=== PATIENT | male | born 1995 | race Caucasian/White ===

== ENCOUNTER 2017-05-20 13:05 | Emergency (ER) | payer OTHER ==
[~2017-05-20] VITALS: Ht 175.3 cm; Wt 85.0 kg
[2017-05-20 13:08] VITALS: TEMP 36.6; Ht 175.3 cm; Wt 85.0 kg
[2017-05-20] MEDS ORDERED: IBUPROFEN 600 MG TAB PO STA (13:14)
--- NOTE | 2017-05-20 13:43 | DIAGNOSTIC IMAGING REPORT ---
RIGHT HAND 3 VIEWS CLINICAL HISTORY: Right hand injury. FINDINGS: 3 portable views of the right hand are obtained. No prior studies are available for comparison at the time of dictation. The skeletal structures are well mineralized. No fracture is identified. The joint spaces of the hand are well-maintained. Dorsal soft tissue edema is noted. IMPRESSION: Dorsal soft tissue swelling with no radiographic evidence of right hand fracture. Electronically signed by: Angel Means M.D. 05/20/2017 1:41 PM Dictated Date/Time: 05/20/2017 1:40 PM
--- NOTE | 2017-05-20 13:48 | EMERGENCY ROOM VISIT NOTE ---
ED Visit Note First contact with patient: 13:11 CHIEF COMPLAINT: Right Hand injury HISTORY OF PRESENT ILLNESS: This 22-year-old male presents the ER with chief complaint of right hand injury. The patient states that he was drinking last night and thinks he hit his right hand off of a wall. He applied ice last night. The patient denies any numbness and tingling in his fingers. He admits to generalized swelling of the hand. He denies a prior fracture to the hand. He is right-hand dominant. REVIEW OF SYSTEMS: 6 system review was performed and was negative unless stated otherwise in history of present illness. PMH: The patient is healthy; there is no significant medical or surgical history. SOCIAL HISTORY: Patient denies tobacco use but admits to occasional alcohol use. The patient is a [employer] student. PHYSICAL EXAM: Vital Signs: Were reviewed Reviewed Nurse's notes. GEN.: 22-year -old male appears in no acute distress. MENTAL Status: Alert and oriented 3. RIGHT HAND: The dorsum of the hand is diffusely swollen and tender. The skin is intact. Flexion and extension of the fingers is full and strong. EMERGENCY DEPARTMENT COURSE: The patient was evaluated. The patient was given Motrin 6 mg by mouth for pain. X-ray of the right hand was ordered interpreted by the radiologist and myself. DIAGNOSTICS:RIGHT HAND 3 VIEWS CLINICAL HISTORY: Right hand injury. FINDINGS: 3 portable views of the right hand are obtained. No prior studies are available for comparison at the time of dictation. The skeletal structures are well mineralized. No fracture is identified. The joint spaces of the hand are well-maintained. Dorsal soft tissue edema is noted. IMPRESSION: Dorsal soft tissue swelling with no radiographic evidence of right hand fracture. Electronically signed by: Angel Means M.D. 05/20/2017 1:41 PM The patient was informed of the findings. The patient was discharged home in stable condition. DIAGNOSIS: Right Hand contusion DISCHARGE INSTRUCTIONS & TREATMENT: Rest the hand and keep it inactive for 2 to 3 days until the pain and swelling subside. Ibuprofen, 600 mg every 6 hours for pain. Keep the hand elevated when possible. If symptoms persist, follow- up with [facility] for reevaluation. Vital Signs Date Time Temp Pulse Resp B/P (MAP) Pulse Ox O2 Delivery O2 Flow Rate FiO2 05/20/17 13:08 36.6 85 16 122/75 96 Medications Administered Medications (Trade) Dose Ordered Sig/Carolyn Route Start Time Stop Time Status Last Admin Dose Admin Ibuprofen (Motrin Tab) 600 mg NOW STAT PO 05/20/17 13:14 05/20/17 13:16 DC 05/20/17 13:43 600 MG Departure Information Referrals No Doctor, Assigned (PCP) Patient Instructions [facility]
[2017-05-20 14:00] VITALS: BP 131/77; PULSE 67; O2SAT 98
== END 2017-05-20 14:03 | disposition home or self-care (01) ==
LOC: C.EDB 13:07 → C.EDD 14:03
DX: S60.221A Contusion of right hand, initial encounter (principal); W22.09XA Striking against other stationary object, initial encounter

== ENCOUNTER 2018-06-28 21:15 | Inpatient (IN) ==
[2018-06-28] MEDS ORDERED: SODIUM CHLORIDE 0.9% 1000ML 1,000 ML IV ONE (22:22)
--- NOTE | 2018-06-28 22:46 | XRay Report ---
SINGLE VIEW CHEST CLINICAL HISTORY: Sepsis. FINDINGS: An AP, portable, upright chest radiograph is obtained. No prior studies are available for c omparison at the time of dictation. The cardiomediastinal silhouette is unremarkable. The lungs and pleural spaces are clear. No pneumothorax is seen. The bony thorax is grossly intact. IMPRESSION: No active disease in the chest. Electronically signed by: Angel Means M.D. 06/28/2018 10:45 PM
[2018-06-28 23:02] LABS: Basophils # (auto) 0.02 K/uL (0-0.2); Basophils % (auto) 0.2 %; Eosinophils # (auto) 0.17 K/uL (0-0.5); Eosinophils % (auto) 1.6 %; Hematocrit (blood only) 35.4 % (42-52); Hemoglobin 12.1 g/dL (14.0-18.0); Immature Granulocytes # (auto) 0.03 K/uL (0.00-0.02); Immature Granulocytes % (auto) 0.3 %; Lymphocytes # (auto) 2.15 K/uL (1.2-3.4); Lymphocytes % (auto) 20.8 %; Mean Corpuscular Hgb Conc 34.2 g/dL (32-36); Mean Corpuscular Volume 89.2 fL (80-100); Mean Platelet Volume 9.3 fL (7.4-10.4); Monocytes # (auto) 0.68 K/uL (0.11-0.59); Monocytes % (auto) 6.6 %; Neutrophils # (auto) 7.28 K/uL (1.4-6.5); Neutrophils % (auto) 70.5 %; Platelet Count 190 K/uL (130-400); RDW Coefficient of Variation 13.6 % (11.5-14.5); RDW Standard Deviation 44.8 fL (36.4-46.3); Red Blood Count 3.97 M/uL (4.7-6.1); White Blood Count 10.33 K/uL (4.8-10.8)
[2018-06-28 23:14] LABS: INR 1.2 (0.9-1.1); Partial Thromboplastin Ratio 1.1; Partial Thromboplastin Time 30.2 Seconds (21.0-31.0); Prothrombin Time 12.4 Seconds (9.0-12.0)
[2018-06-28 23:20] LABS: Alanine Aminotransferase 55 U/L (12-78); Albumin Level 3.6 gm/dl (3.4-5.0); Aspartate Aminotransferase 103 U/L (15-37); BUN Creatinine Ratio 10.7 (10-20); Blood Urea Nitrogen 11 mg/dl (7-18); Calcium 8.3 mg/dl (8.5-10.1); Carbon Dioxide 30 mmol/L (21-32); Chloride 102 mmol/L (98-107); Creatinine Clr Calc Pharmacy 130.3 ml/min; Est GFR (African American) 118.4; Est GFR (Non-African American) 102.2; Glucose 79 mg/dl (70-99); Potassium 3.5 mmol/L (3.5-5.1); Sodium 137 mmol/L (136-145)
[2018-06-28 23:23] LABS: Albumin Globulin Ratio 1.2 (0.9-2); Alkaline Phosphatase 63 U/L (45-117); Bilirubin,Total 1.7 mg/dl (0.2-1); Globulin 3.1 gm/dl (2.5-4.0); Total Protein 6.7 gm/dl (6.4-8.2)
[2018-06-28 23:34] LABS: Acetaminophen < 2 ug/ml (10-30); Salicylate < 1.7 mg/dl (2.8-20)
[2018-06-29] MEDS ORDERED: KETOROLAC 30 MG/ML VIAL IV ONE (00:05)
--- NOTE | 2018-06-29 00:16 | Emergency Department Note ---
Entered by Zain Vera acting as a scribe for Robin Li MD History of Present Illness General Chief complaint: Neck Injury/Pain Stated complaint: HARD TIME BREATHING Time Seen by Provider: 06/28/18 22:13 Source: patient History of Present Illness Onset (ago): day(s) 2 Location: neck Pain Consistency: + constant Maximum Pain Intensity: 7 Associated symptoms: + other (Positive for a sore throat, headache, brown productive cough, joint aches, vision changes, and SOB. Negative for ear aches, vomiting, diarrhea, and abdominal pain.) The patient is a 23 year old male who presents to the emergency department with complaints of constant neck pain beginning two days ago. The patient states that his neck pain is along both sides of his neck. He notes that he has been rubbing his neck so much that it has become raw. He also complains of a sore throat, headache, a brown productive cough, joint aches, vision changes, and SOB. He denies any ear aches, vomiting, diarrhea, and abdominal pain. He reports that he drinks alcohol but does not use any drugs. The patient states that he has been using ibuprofen with no relief of his symptoms. He notes that he did not get a flu shot this year. Home Medications Home Medications Medication Instructions Recorded Confirmed Type No Known Home Medications 06/28/18 06/28/18 History Allergies Allergy/AdvReac Type Severity Reaction Status Date / Time No Known Allergies Allergy Unverified 06/28/18 23:06 Past Med/Surg History Medical History No chronic problems Family History Other No significant family history Social History Feels Safe at Home: Yes Smoking Status: Never smoker Hx Alcohol Use: Yes Hx Substance Use: No Review of Systems See HPI for pertinent positives & negatives. and A total of 10 systems reviewed and were otherwise negative Physical Exam Vital Signs Vital Signs - 24 hr 06/28/18 21:16 06/28/18 21:19 06/28/18 22:22 Temperature 37.2 C Temperature Source Oral Sepsis Recent Fever Within 48 Hours No Sepsis New/Unexplained Change in Mental Status No Sepsis Action Taken by Nursing No Action Required Pulse Rate 108 H 105 H Pulse Rate [Right Finger] 101 H Pulse Rate from SpO2 Sensor Pulse Rhythm [Right Finger] Pulse Strength [Right Finger] Respiratory Rate 22 20 Respiratory Effort / Characteristics Non-Labored Spontaneous Respiratory Depth Normal Respiratory Pattern Regular Blood Pressure 134/94 Blood Pressure [Right Arm] 119/71 Blood Pressure Mean 107 Blood Pressure Mean [Right Arm] 87 Blood Pressure Position [Right Arm] Sitting Pulse Oximetry 95 94 98 Oxygen Delivery Method Room Air Room Air Oxygen Flow Rate 06/28/18 22:37 06/28/18 23:00 06/28/18 23:15 Temperature Temperature Source Sepsis Recent Fever Within 48 Hours Sepsis New/Unexplained Change in Mental Status Sepsis Action Taken by Nursing Pulse Rate 101 H 92 H Pulse Rate [Right Finger] 100 H Pulse Rate from SpO2 Sensor 100 H 92 H Pulse Rhythm [Right Finger] Pulse Strength [Right Finger] Respiratory Rate 22 18 15 Respiratory Effort / Characteristics Non-Labored Spontaneous Respiratory Depth Normal Respiratory Pattern Regular Blood Pressure Blood Pressure [Right Arm] 119/69 Blood Pressure Mean Blood Pressure Mean [Right Arm] 85 Blood Pressure Position [Right Arm] Lying Pulse Oximetry 95 78 L 96 Oxygen Delivery Method Room Air Oxygen Flow Rate 3 06/28/18 23:30 06/28/18 23:45 06/29/18 00:00 Temperature Temperature Source Sepsis Recent Fever Within 48 Hours Sepsis New/Unexplained Change in Mental Status Sepsis Action Taken by Nursing Pulse Rate 111 H 100 H Pulse Rate [Right Finger] Pulse Rate from SpO2 Sensor 105 H 117 H 100 H Pulse Rhythm [Right Finger] Pulse Strength [Right Finger] Respiratory Rate 16 18 Respiratory Effort / Characteristics Respiratory Depth Respiratory Pattern Blood Pressure 119/68 Blood Pressure [Right Arm] Blood Pressure Mean 85 Blood Pressure Mean [Right Arm] Blood Pressure Position [Right Arm] Pulse Oximetry 96 96 96 Oxygen Delivery Method Oxygen Flow Rate 3 3 3 06/29/18 00:54 06/29/18 01:39 Temperature Temperature Source Sepsis Recent Fever Within 48 Hours Sepsis New/Unexplained Change in Mental Status Sepsis Action Taken by Nursing Pulse Rate Pulse Rate [Right Finger] 100 H 100 H Pulse Rate from SpO2 Sensor Pulse Rhythm [Right Finger] Regular Pulse Strength [Right Finger] Normal Respiratory Rate 17 18 Respiratory Effort / Characteristics Non-Labored Spontaneous Non-Labored Spontaneous Respiratory Depth Shallow Normal Respiratory Pattern Regular Regular Blood Pressure Blood Pressure [Right Arm] 120/100 102/75 Blood Pressure Mean Blood Pressure Mean [Right Arm] 106 84 Blood Pressure Position [Right Arm] Sitting Lying Pulse Oximetry 85 L 98 Oxygen Delivery Method Room Air Room Air Oxygen Flow Rate General: Non-ill appearing 23 year old male in no acute distress. Nontoxic, normal level of consciousness, answering questions appropriately. GCS: 15. HEENT: Normal cephalic atraumatic. Pupils are equal round and reactive to light. Extraocular movements are intact. Oropharynx is pink with moist mucous membranes. No swelling of the mouth lips or tongue. Neck: Supple with a midline trachea. No meningeal signs or stiffness, no JVD or bruits. No Stridor. Scabs to the right lateral neck that have been scratched. Negative Kernig sign, negative Brudzinski sign. Chest: Clear to auscultation bilaterally. No wheezes or rhonchi. No increased work of breathing. Heart: regular rate and rhythm. Abdomen: Soft nontender, nondistended without rebound guarding or rigidity. Extremities: No cyanosis clubbing or edema. No calf tenderness or asymmetry Spine/Back. Non tender to palpation. No CVA tenderness Skin: Good turgor. Rash on chest that looks like hives and blanches. Neurologic exam: Cranial nerves two through 12 are intact. Motor and sensation are intact and symmetrical throughout. Course 2220: Past medical records reviewed. The patient was evaluated in room A3, and a complete history and physical examination were performed. 2308: I reevaluated and updated the patient. He is resting comfortably and nontoxic. 0005: I rechecked the patient. 0035: I reevaluated and updated the patient. He appears comfortable. 0122: I rechecked the patient. He still appears comfortable. 0132: Upon reevaluation, the patient is stable. I discussed the results and treatment plan with the patient. He verbalizes understanding and agreement. I discussed the patient's case with ANGELICA Santamaria. The patient wi ll be evaluated for further management and care. Consultations Consultation #1: I reviewed the patient's case with ANGELICA Sanatmaria. She will evaluate the patient for further management. Time: 01:32 Administered Medications Sodium Chloride (Nss 1000ml) 1,000 mls @ 999 mls/hr IV .Q1H1M ONE Stop: 06/29/18 02:07 Last Admin: 06/29/18 01:32 Dose: 999 mls/hr Documented by: [id number] Ceftriaxone Sodium (Rocephin) 1,000 mg in 50 mls @ 100 mls/hr IV NOW STA Stop: 06/29/18 01:52 Last Admin: 06/29/18 01:32 Dose: 100 mls/hr Documented by: [id number] Ioversol (Optiray 320 100ml) 94 ml IV ONCE PRN PRN Reason: Interaction Checking Stop: 07/03/18 00:51 Last Admin: 06/29/18 00:52 Dose: 94 ml Documented by: [id number] Discontinued Medications Acetaminophen (Tylenol) 650 mg PO NOW STA Stop: 06/29/18 01:40 Last Admin: 06/29/18 01:45 Dose: 650 mg Documented by: [id number] Sodium Chloride (Nss 1000ml) 1,000 mls @ 999 mls/hr IV .Q1H1M ONE Stop: 06/28/18 23:22 Last Infusion: 06/29/18 00:58 Dose: 0 mls/hr Documented by: [id number] Admin: 06/28/18 23:01 Dose: 999 mls/hr Documented by: [id number] Ketorolac Tromethamine (Toradol) 30 mg IV NOW ONE Stop: 06/29/18 00:06 Last Admin: 06/29/18 00:21 Dose: 30 mg Documented by: [id number] Medical Decision Making Differential Diagnosis Differential diagnoses include: influenza, allergic reaction, toxicologic process, meningitis, and electrolyte/metabolic abnormalities. Medical Records Attestation: I reviewed the patient's medical records. Home Medications Current Medication List: was personally reviewed by me Laboratory Data Attestation: I reviewed the patient's lab results. Result diagrams: 06/28/18 22:51 06/28/18 22:51 Lab Results 06/28/18 06/28/18 06/28/18 Range/Units 22:38 22:50 22:51 WBC 10.33 (4.8-10.8) K/uL RBC 3.97 L (4.7-6.1) M/uL Hgb 12.1 L (14.0-18.0) g/dL Hct 35.4 L (42-52) % MCV 89.2 (80-100) fL MCH 30.5 (25-34) pg MCHC 34.2 (32-36) g/dL RDW Std Deviation 44.8 (36.4-46.3) fL RDW Coeff of Mackenzie 13.6 (11.5-14.5) % Plt Count 190 (130-400) K/uL MPV 9.3 (7.4-10.4) fL Immature Gran % (Auto) 0.3 % Neut % (Auto) 70.5 % Lymph % (Auto) 20.8 % Scott % (Auto) 6.6 % Eos % (Auto) 1.6 % Baso % (Auto) 0.2 % Immature Gran # (Auto) 0.03 H (0.00-0.02) K/uL Neut # (Auto) 7.28 H (1.4-6.5) K/uL Lymph # (Auto) 2.15 (1.2-3.4) K/uL Scott # (Auto) 0.68 H (0.11-0.59) K/uL Eos # (Auto) 0.17 (0-0.5) K/uL Baso # (Auto) 0.02 (0-0.2) K/uL PT (9.0-12.0) Seconds INR (0.9-1.1) APTT (21.0-31.0) Seconds PTT Ratio Sodium (136-145) mmol/L Potassium (3.5-5.1) mmol/L Chloride (98-107) mmol/L Carbon Dioxide (21-32) mmol/L Anion Gap (3-11) BUN (7-18) mg/dl Creatinine (0.6-1.4) mg/dl Est Cr Clr Drug Dosing ml/min Est GFR ( Amer) Est GFR (Non-Af Amer) BUN/Creatinine Ratio (10-20) Glucose (70-99) mg/dl Lactate 0.6 (0.4-2.0) mmol/L Calcium (8.5-10.1) mg/dl Total Bilirubin (0.2-1) mg/dl AST (15-37) U/L ALT (12-78) U/L Alkaline Phosphatase (45-117) U/L Total Creatine Kinase (39-308) U/L CK-MB (CK-2) (0.5-3.6) ng/ml CK/CKMB % Calc (0-3.0) Total Protein (6.4-8.2) gm/dl Albumin (3.4-5.0) gm/dl Globulin (2.5-4.0) gm/dl Albumin/Globulin Ratio (0.9-2) TSH (0.300-4.500) uIu/ml Free T4 (0.8-1.6) ng/dl Salicylates (2.8-20) mg/dl Acetaminophen (10-30) ug/ml Monoscreen (Negative) Influenza Type A Ag Neg for Influ A (Neg) Influenza Type B Ag Neg for Influ B (Neg) 06/28/18 06/28/18 06/28/18 Range/Units 22:51 22:51 22:51 WBC (4.8-10.8) K/uL RBC (4.7-6.1) M/uL Hgb (14.0-18.0) g/dL Hct (42-52) % MCV (80-100) fL MCH (25-34) pg MCHC (32-36) g/dL RDW Std Deviation (36.4-46.3) fL RDW Coeff of Mackenzie (11.5-14.5) % Plt Count (130-400) K/uL MPV (7.4-10.4) fL Immature Gran % (Auto) % Neut % (Auto) % Lymph % (Auto) % Scott % (Auto) % Eos % (Auto) % Baso % (Auto) % Immature Gran # (Auto) (0.00-0.02) K/uL Neut # (Auto) (1.4-6.5) K/uL Lymph # (Auto) (1.2-3.4) K/uL Scott # (Auto) (0.11-0.59) K/uL Eos # (Auto) (0-0.5) K/uL Baso # (Auto) (0-0.2) K/uL PT 12.4 H (9.0-12.0) Seconds INR 1.2 H (0.9-1.1) APTT 30.2 (21.0-31.0) Seconds PTT Ratio 1.1 Sodium 137 (136-145) mmol/L Potassium 3.5 (3.5-5.1) mmol/L Chloride 102 (98-107) mmol/L Carbon Dioxide 30 (21-32) mmol/L Anion Gap 5.0 (3-11) BUN 11 (7-18) mg/dl Creatinine 1.04 (0.6-1.4) mg/dl Est Cr Clr Drug Dosing 130.3 ml/min Est GFR ( Amer) 118.4 Est GFR (Non-Af Amer) 102.2 BUN/Creatinine Ratio 10.7 (10-20) Glucose 79 (70-99) mg/dl Lactate (0.4-2.0) mmol/L Calcium 8.3 L (8.5-10.1) mg/dl Total Bilirubin 1.7 H (0.2-1) mg/dl AST 103 H (15-37) U/L ALT 55 (12-78) U/L Alkaline Phosphatase 63 (45-117) U/L Total Creatine Kinase 2830 H (39-308) U/L CK-MB (CK-2) 12.6 H (0.5-3.6) ng/ml CK/CKMB % Calc 0.4 (0-3.0) Total Protein 6.7 (6.4-8.2) gm/dl Albumin 3.6 (3.4-5.0) gm/dl Globulin 3.1 (2.5-4.0) gm/dl Albumin/Globulin Ratio 1.2 (0.9-2) TSH 0.266 L (0.300-4.500) uIu/ml Free T4 1.03 (0.8-1.6) ng/dl Salicylates < 1.7 L (2.8-20) mg/dl Acetaminophen < 2 L (10-30) ug/ml Monoscreen (Negative) Influenza Type A Ag (Neg) Influenza Type B Ag (Neg) 06/28/18 Range/Units 22:51 WBC (4.8-10.8) K/uL RBC (4.7-6.1) M/uL Hgb (14.0-18.0) g/dL Hct (42-52) % MCV (80-100) fL MCH (25-34) pg MCHC (32-36) g/dL RDW Std Deviation (36.4-46.3) fL RDW Coeff of Mackenzie (11.5-14.5) % Plt Count (130-400) K/uL MPV (7.4-10.4) fL Immature Gran % (Auto) % Neut % (Auto) % Lymph % (Auto) % Scott % (Auto) % Eos % (Auto) % Baso % (Auto) % Immature Gran # (Auto) (0.00-0.02) K/uL Neut # (Auto) (1.4-6.5) K/uL Lymph # (Auto) (1.2-3.4) K/uL Scott # (Auto) (0.11-0.59) K/uL Eos # (Auto) (0-0.5) K/uL Baso # (Auto) (0-0.2) K/uL PT (9.0-12.0) Seconds INR (0.9-1.1) APTT (21.0-31.0) Seconds PTT Ratio Sodium (136-145) mmol/L Potassium (3.5-5.1) mmol/L Chloride (98-107) mmol/L Carbon Dioxide (21-32) mmol/L Anion Gap (3-11) BUN (7-18) mg/dl Creatinine (0.6-1.4) mg/dl Est Cr Clr Drug Dosing ml/min Est GFR ( Amer) Est GFR (Non-Af Amer) BUN/Creatinine Ratio (10-20) Glucose (70-99) mg/dl Lactate (0.4-2.0) mmol/L Calcium (8.5-10.1) mg/dl Total Bilirubin (0.2-1) mg/dl AST (15-37) U/L ALT (12-78) U/L Alkaline Phosphatase (45-117) U/L Total Creatine Kinase (39-308) U/L CK-MB (CK-2) (0.5-3.6) ng/ml CK/CKMB % Calc (0-3.0) Total Protein (6.4-8.2) gm/dl Albumin (3.4-5.0) gm/dl Globulin (2.5-4.0) gm/dl Albumin/Globulin Ratio (0.9-2) TSH (0.300-4.500) uIu/ml Free T4 (0.8-1.6) ng/dl Salicylates (2.8-20) mg/dl Acetaminophen (10-30) ug/ml Monoscreen Negative (Negative) Influenza Type A Ag (Neg) Influenza Type B Ag (Neg) Imaging Data Radiologist's Impression: Radiology results as stated below per my review and the radiologist's interpretation: SINGLE VIEW CHEST FINDINGS: An AP, portable, upright chest radiograph is obtained. No prior studies are available for comparison at the time of dictation. The cardiomediastinal silhouette is unremarkable. The lungs and pleural spaces are clear. No pneumothorax is seen. The bony thorax is grossly intact. IMPRESSION: No active disease in the chest. Electronically signed by: Angel Means M.D. 06/28/2018 10:[address] HEAD: No acute intracranial process. Radiologist: Tolu Marcelo M.D. CT NECK: No fluid collections. No abnormal mass lesions. The airway is patent. No adenopathy. Osseous structures are unremarkable. Lobe infiltrate is partially seen. ADDENDUM Added by Aman Diaz MD. Right upper lobe infiltrate is partially seen. Blood Pressure Blood Pressure Findings: Normal blood pressure Blood Pressure Disposition: did not require urgent referral Head Trauma GCS Score: 15 MDM Narrative This patient comes in as described above. he has had flulike symptoms for couple days. he has pain in his neck and it is mostly anteriorly and he is feels like there is lumps there he has been picking at them. He looks nontoxic. he does say he has a hard time focusing and at times seems a little hard to engage but is alert and oriented x3. He has no meningeal signs or stiffness he appears nontoxic. Chest x-ray was unremarkable. He is afebrile here. He has no white count or fever here to suggest infection his lactic acid is not elevated. He has no significant electrolyte or metabolic abnormalities with exception of his CK being elevated, consistent with rhabdo. In light of this I did order a urinalysis as well. Urine drug screen is pending as well. CAT scan of his head is unremarkable influenza was negative. He was hydrated normal saline. He was given Toradol 30 mg IV. He was reassessed frequently. His toxicologic studies were negative. I did a CAT scan of his neck as well there is no abnormalities there is a right upper lobe infiltrate this could be causing some of his symptoms he appears in no distress from a respiratory standpoint but when he sleeps without oxygen he does desaturate to the 80s. To give him IV Rocephin and also ordered IV azithromycin for possible pneumonia. I do think he has rhabdomyolysis and possible pneumonia his TSH is also low in the thyroid could be causing some issues here. I do not these likely and thyroid spelled storm. I do think he needs to be admitted/observe for further treatment and evaluation. At this point, I do not feel he needs a lumbar puncture. he has no meningeal signs or stiffness fever or white count. I do think he needs to be observed further however I have consulted the hospitalist to see him in the ER for these measures. Impression & Plan Rhabdomyolysis, Pneumonia, Hypoxemia, Neck pain, Thyroid disease Discharge Plan Visit Data Chief Complaint: Neck Injury/Pain Stated Complaint: HARD TIME BREATHING ED Provider: Robin Li Discharge Problem: Rhabdomyolysis, Pneumonia, Hypoxemia, Neck pain, Thyroid disease Patient Disposition: Being Evaluated by Hospitalist Forms Stand Alone Forms: My [facility] Prescriptions Prescriptions: No Action No Known Home Medications RF: 0 Referrals Referrals: Ar Reynolds M.D. [Primary Care Provider] - Discharge Problem: Rhabdomyolysis Qualifiers: Rhabdomyolysis type: traumatic Encounter type: initial encounter Qualified Code(s): T79.6XXA - Traumatic ischemia of muscle, initial encounter Pneumonia Qualifiers: Pneumonia type: due to unspecified organism Laterality: right Lung location: upper lobe of lung Qualified Code(s): J18.1 - Lobar pneumonia, unspecified organism The scribe's documentation has been prepared under my direction and personally reviewed by me in its entirety. I confirm that the note above accurately reflects all work, treatment, procedures, and medical decision making performed by me.
[2018-06-29] MEDS ORDERED: IOVERSOL 100ml IV PRN (00:52)
[2018-06-29 01:02] LABS: Creatine Kinase MB 12.6 ng/ml (0.5-3.6)
[2018-06-29 01:03] LABS: Creatine Kinase 2830 U/L (39-308)
[2018-06-29] MEDS ORDERED: SODIUM CHLORIDE 0.9% 1000ML 1,000 ML IV ONE (01:07)
[2018-06-29] MEDS ORDERED: cefTRIAXone SODIUM 1,000 MG/50 ML BAG IV STA (01:23)
[2018-06-29] MEDS ORDERED: ACETAMINOPHEN 325 MG TAB PO STA (01:39)
[2018-06-29 01:44] LABS: T4 Free Thyroxine 1.03 ng/dl (0.8-1.6)
[2018-06-29] MEDS ORDERED: AZITHROMYCIN 500 MG in DEXTROSE 5% 250 ML IV STA (01:49)
[2018-06-29 02:20] LABS: Troponin I < 0.015 ng/ml (0-0.045)
--- NOTE | 2018-06-29 02:34 | History & Physical Report ---
Date of Service June 29, 2018 Assessment & Plan (1) Rhabdomyolysis: 23-year-old male with no significant past medical history who presents with 3-day history of constitutional symptoms like night sweats, chills associated with proximal muscle achiness/pain in his shoulders and neck. Also endorses a red smooth blotchy rash across his chest and face, subtle facial swelling, pruritus - Scratched so hard on his shoulders he david blood. Productive cough with brown phlegm. Denies recent physical trauma to his shoulders or neck, has not exercised for 2 weeks. Travel to [place] at the beginning of last month for 3 days. Also endorses sore throat. In the ED he was found to be mildly tachycardic, afebrile. 98 on room air, although at times hypoxic (while asleep). Normocytic anemia: Hemoglobin 12.1, hematocrit 35.4. CBC otherwise unremarkable. ESR mildly elevated at 15. CRP markedly elevated 11.6. INR mildly elevated 1.2. BMP unremarkable. T bili elevated 1.7, AST>>ALT elevated 103/55. Total CK markedly elevated 2830. Troponin negative. TSH 0.26 but free T4 normal 1.03. Negative mono screen, negative flu. Imaging of head and neck revealed no abnormalities with the exception of possible right upper lobe infiltrate of the lung, not fully visualized due to the study. Chest x-ray negative. Physical exam and preliminary lab findings would suggest a possible autoimmune process. However, the differential diagnosis includes: - PE (Wells score 1.5 or less, 1.3% chance of PE) - viral versus bacterial pneumonia, hepatitis - neoplastic - drug-induced (although patient is not on any chronic medications) - iatrogenic (although patient has no past medical history and no recent visits in the hospital) - (unlikely) congenital - autoimmune causes include dermatomyositis or lupus. Elevated AST consistent with rhabdomyolysis. - trauma (although no history of such) - endocrine issues include sick euthyroid syndrome. Plan: Labs/imaging: -CT chest pending, ordered with no contrast given timing of contrasted studies previously (CT neck). -Urine tox pending -Strep screen pending -ESR (15) and CRP are elevated, TRESA pending. If TRESA positive, would recommend further workup of most likely antibodies for dermatomyositis including anti-Ro/SSA, anti-La/SSB, anti-MORALE OFFICER, anti-Gonzalez; myositis specific antibodies including anti-Bonita 1 among others. - hepatitis panel pending - direct bili pending management: -IV fluids running at maintenance to protect kidneys in setting of elevated CK -dexamethasone will be given for facial swelling and pruritus -Pain control with Tylenol, 0.25 mg IV Dilaudid breakthrough. With rhabdomyolysis, will avoid further nephrotoxic agents when possible. -Cover for community-acquired pneumonia includes IV ceftriaxone and IV azithromycin. If clinically improving and CT chest negative, consider DC. FEN/GI: Regular diet, NSS at 100 ml/hr DVT ppx: SCDs CODE STATUS: Full code DISPO: Med telemetry (2) Pneumonia: Chest x-ray mostly unremarkable although possible right upper lobe infiltrate seen on the CT of the neck. -Most likely community-acquired, ceftriaxone and azithromycin as above. CT chest still pending. (3) Neck pain: -Specifically musculoskeletal trapezius and SCM pain, also throat pain which seems to be more mucosal irritation either from acute infection or systemic disease. -Rhabdomyolysis has been associated with strep throat. -Strep screen pending - Pain management as above -Dexamethasone ordered for acute possible swelling of the mucosal surfaces in the mouth and the throat. (4) Sick euthyroidism: As above, recheck thyroid profile 2 weeks after discharge (5) Anemia: Patient presents with a normocytic anemia H&H 12.1/35.4. -Could be consistent with an autoimmune disease -no s/s acute bleeding, hemodynamically stable (6) Transaminitis: AST 103 , normal ALT -No jaundice or abdominal pain -Patient does use alcohol, could be explained by alcoholic use -May also be explained by viral syndrome or autoimmune disease -Follow CMP, consider abdominal imaging (7) Hypoxemia: Patient's oxygen saturation would occasionally dip while sleeping. Patient does have complaint of throat pain and subjective throat swelling although CT of the neck does not show any evidence of this. -O2 as needed -Dexamethasone as above. History of Present Illness Primary Care Provider: Ar Reynolds 23-year-old male with no significant past medical history who presents with 3- day history of constitutional symptoms like night sweats, chills associated with proximal muscle pain and pruritus in his shoulders and neck. Also endorses a smooth blotchy rash across his chest and face, subtle facial swelling, productive cough with brown phlegm. Denies recent physical trauma to his shoulders or neck, has not exercised for 2 weeks. Travel to [place] at the beginning of last month for 3 days. Also endorses sore throat. Scratched so hard on his shoulders he david blood. In the ED he was found to be mildly tachycardic, afebrile. 98 on room air. Hemoglobin 12.1, hematocrit 35.4. CBC otherwise unremarkable. ESR mildly elevated at 15. INR mildly elevated 1.2. BMP unremarkable. T bili elevated 1.7, AST>>ALT elevated 103/55. Total CK markedly elevated 2830. Troponin negative. TSH 0.26 but free T4 normal 1.03. Negative mono screen, negative flu. Imaging of head and neck revealed no abnormalities with the exception of possible right upper lobe infiltrate of the lung, not fully visualized due to the study. Chest x-ray negative. 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 Drinks 12 beers in 1 week on average. Family history: Father is alive and well. Mother has thyroid disease. Allergies Allergy/AdvReac Type Severity Reaction Status Date / Time No Known Allergies Allergy Unverified 06/28/18 23:06 Home Medications Home Medications Medication Instructions Recorded Confirmed Type No Known Home Medications 06/28/18 06/28/18 History Past Med/Surg History Medical History No chronic problems Family History Other No significant family history Social History Preferred Language: Chadian Communication Ability: Effective Telehealth Coordinator Required: No Beliefs That Will Affect Care: None Current Living Situation: Parent Other Information That Helps Us Care for You: No Feels Safe at Home: Yes Safety Concerns: Feels Safe At This Time Smoking Status: Never smoker Hx Alcohol Use: Yes Hx Substance Use: No Review of Systems All systems reviewed & are unremarkable except as noted in HPI & below (Endorses facial swelling, odynophagia, gasping for air upon wakening, productive cough. Night sweats and chills. Denies visual changes. Endorses bilateral headache. Denies dyspnea. Endorses weakness generalized.) Physical Exam Vital Signs (Past 24 Hours): Last Vital Signs Temp 37.2 C 06/28/18 21:19 Pulse 100 H 06/29/18 01:39 Resp 18 06/29/18 01:39 BP 102/75 06/29/18 01:39 Pulse Ox 98 06/29/18 01:39 Physical Exam: Vitals noted as above and within normal limits with the ex ception of tachycardia. GENERAL: Awake, alert to person, place, and time, nontoxic-appearing, in no distress HENT: Normocephalic, atraumatic. Nasal cannula in place. Mucus membranes appear moist. + Pharyngeal erythema. No cervical or supraclavicular lymphadenopathy. + Maculopapular rash across chest and cheeks. + excoriations on right shoulder. EYES: Normal conjunctiva. Sclera non-icteric. EOMI.+ Heliotrope rash with some eyelid swelling. NECK: Supple. Full range of motion. No JVD RESPIRATORY: Clear to auscultation. Normal work of breathing. CARDIAC: Regular rate, normal rhythm. Extremities warm and well perfused, ; . ABDOMEN: Soft, non-distended. No tenderness to palpation in all four quadrants. No rebound or guarding. No masses. Bowel sounds are normal. LOWER EXTREMITIES: Inspection of calves reveal equal size bilaterally. They are non-tender. No edema. No discoloration. NEURO: No focal gross focal motor deficits noted. Sensation in tact. CN II-XII grossly in tact. SKIN: Rash not present. No jaundice noted. Significant lesions not present. PSYCH: Appropriate mood and affect. Cooperative. Exam as done by Keyla Caputo MD, Budget Director. Results & Data Laboratory Results 06/29/18 06/29/18 06/28/18 Range/Units 03:00 03:00 22:51 WBC (4.8-10.8) K/uL RBC (4.7-6.1) M/uL Hgb (14.0-18.0) g/dL Hct (42-52) % MCV (80-100) fL MCH (25-34) pg MCHC (32-36) g/dL RDW Std Deviation (36.4-46.3) fL RDW Coeff of Mackenzie (11.5-14.5) % Plt Count (130-400) K/uL MPV (7.4-10.4) fL Immature Gran % (Auto) % Neut % (Auto) % Lymph % (Auto) % Pettis % (Auto) % Eos % (Auto) % Baso % (Auto) % Immature Gran # (Auto) (0.00-0.02) K/uL Neut # (Auto) (1.4-6.5) K/uL Lymph # (Auto) (1.2-3.4) K/uL Pettis # (Auto) (0.11-0.59) K/uL Eos # (Auto) (0-0.5) K/uL Baso # (Auto) (0-0.2) K/uL ESR 15 H (0-14) mm/hr PT (9.0-12.0) Seconds INR (0.9-1.1) APTT (21.0-31.0) Seconds PTT Ratio Sodium (136-145) mmol/L Potassium (3.5-5.1) mmol/L Chloride (98-107) mmol/L Carbon Dioxide (21-32) mmol/L Anion Gap (3-11) BUN (7-18) mg/dl Creatinine (0.6-1.4) mg/dl Est Cr Clr Drug Dosing ml/min Est GFR ( Amer) Est GFR (Non-Af Amer) BUN/Creatinine Ratio (10-20) Glucose (70-99) mg/dl Lactate (0.4-2.0) mmol/L Calcium (8.5-10.1) mg/dl Total Bilirubin (0.2-1) mg/dl AST (15-37) U/L ALT (12-78) U/L Alkaline Phosphatase (45-117) U/L Total Creatine Kinase (39-308) U/L CK-MB (CK-2) (0.5-3.6) ng/ml CK/CKMB % Calc (0-3.0) Troponin I (0-0.045) ng/ml C-Reactive Protein (0-0.29) mg/dl Total Protein (6.4-8.2) gm/dl Albumin (3.4-5.0) gm/dl Globulin (2.5-4.0) gm/dl Albumin/Globulin Ratio (0.9-2) TSH (0.300-4.500) uIu/ml Free T4 (0.8-1.6) ng/dl Urine Color Pending Urine Appearance Pending Urine pH Pending Ur Specific [place] Pending Urine Protein Pending Urine Glucose (UA) Pending Urine Ketones Pending Urine Blood Pending Urine Nitrite Pending Urine Bilirubin Pending Urine Urobilinogen Pending Ur Leukocyte Esterase Pending Salicylates (2.8-20) mg/dl Urine Opiates Screen Pending Ur Methadone, Qual Pending Acetaminophen (10-30) ug/ml Urine Barbiturates Pending Ur Phencyclidine (PCP) Pending U Amphetamin/Meth Scrn Pending MDMA (Ecstasy) Screen Pending U Benzodiazepines Scrn Pending Ur Cocaine Metabolite Pending U Marijuana (THC) Screen Pending Monoscreen (Negative) Influenza Type A Ag (Neg) Influenza Type B Ag (Neg) 06/28/18 06/28/18 06/28/18 Range/Units 22:51 22:51 22:51 WBC (4.8-10.8) K/uL RBC (4.7-6.1) M/uL Hgb (14.0-18.0) g/dL Hct (42-52) % MCV (80-100) fL MCH (25-34) pg MCHC (32-36) g/dL RDW Std Deviation (36.4-46.3) fL RDW Coeff of Mackenzie (11.5-14.5) % Plt Count (130-400) K/uL MPV (7.4-10.4) fL Immature Gran % (Auto) % Neut % (Auto) % Lymph % (Auto) % Pettis % (Auto) % Eos % (Auto) % Baso % (Auto) % Immature Gran # (Auto) (0.00-0.02) K/uL Neut # (Auto) (1.4-6.5) K/uL Lymph # (Auto) (1.2-3.4) K/uL Pettis # (Auto) (0.11-0.59) K/uL Eos # (Auto) (0-0.5) K/uL Baso # (Auto) (0-0.2) K/uL ESR (0-14) mm/hr PT (9.0-12.0) Seconds INR (0.9-1.1) APTT (21.0-31.0) Seconds PTT Ratio Sodium 137 (136-145) mmol/L Potassium 3.5 (3.5-5.1) mmol/L Chloride 102 (98-107) mmol/L Carbon Dioxide 30 (21-32) mmol/L Anion Gap 5.0 (3-11) BUN 11 (7-18) mg/dl Creatinine 1.04 (0.6-1.4) mg/dl Est Cr Clr Drug Dosing 130.3 ml/min Est GFR ( Amer) 118.4 Est GFR (Non-Af Amer) 102.2 BUN/Creatinine Ratio 10.7 (10-20) Glucose 79 (70-99) mg/dl Lactate (0.4-2.0) mmol/L Calcium 8.3 L (8.5-10.1) mg/dl Total Bilirubin 1.7 H (0.2-1) mg/dl AST 103 H (15-37) U/L ALT 55 (12-78) U/L Alkaline Phosphatase 63 (45-117) U/L Total Creatine Kinase 2830 H (39-308) U/L CK-MB (CK-2) 12.6 H (0.5-3.6) ng/ml CK/CKMB % Calc 0.4 (0-3.0) Troponin I < 0.015 (0-0.045) ng/ml C-Reactive Protein 11.60 H (0-0.29) mg/dl Total Protein 6.7 (6.4-8.2) gm/dl Albumin 3.6 (3.4-5.0) gm/dl Globulin 3.1 (2.5-4.0) gm/dl Albumin/Globulin Ratio 1.2 (0.9-2) TSH 0.266 L (0.300-4.500) uIu/ml Free T4 1.03 (0.8-1.6) ng/dl Urine Color Urine Appearance Urine pH Ur Specific [place] Urine Protein Urine Glucose (UA) Urine Ketones Urine Blood Urine Nitrite Urine Bilirubin Urine Urobilinogen Ur Leukocyte Esterase Salicylates < 1.7 L (2.8-20) mg/dl Urine Opiates Screen Ur Methadone, Qual Acetaminophen < 2 L (10-30) ug/ml Urine Barbiturates Ur Phencyclidine (PCP) U Amphetamin/Meth Scrn MDMA (Ecstasy) Screen U Benzodiazepines Scrn Ur Cocaine Metabolite U Marijuana (THC) Screen Monoscreen Negative (Negative) Influenza Type A Ag (Neg) Influenza Type B Ag (Neg) 06/28/18 06/28/18 06/28/18 Range/Units 22:51 22:51 22:50 WBC 10.33 (4.8-10.8) K/uL RBC 3.97 L (4.7-6.1) M/uL Hgb 12.1 L (14.0-18.0) g/dL Hct 35.4 L (42-52) % MCV 89.2 (80-100) fL MCH 30.5 (25-34) pg MCHC 34.2 (32-36) g/dL RDW Std Deviation 44.8 (36.4-46.3) fL RDW Coeff of Mackenzie 13.6 (11.5-14.5) % Plt Count 190 (130-400) K/uL MPV 9.3 (7.4-10.4) fL Immature Gran % (Auto) 0.3 % Neut % (Auto) 70.5 % Lymph % (Auto) 20.8 % Pettis % (Auto) 6.6 % Eos % (Auto) 1.6 % Baso % (Auto) 0.2 % Immature Gran # (Auto) 0.03 H (0.00-0.02) K/uL Neut # (Auto) 7.28 H (1.4-6.5) K/uL Lymph # (Auto) 2.15 (1.2-3.4) K/uL Pettis # (Auto) 0.68 H (0.11-0.59) K/uL Eos # (Auto) 0.17 (0-0.5) K/uL Baso # (Auto) 0.02 (0-0.2) K/uL ESR (0-14) mm/hr PT 12.4 H (9.0-12.0) Seconds INR 1.2 H (0.9-1.1) APTT 30.2 (21.0-31.0) Seconds PTT Ratio 1.1 Sodium (136-145) mmol/L Potassium (3.5-5.1) mmol/L Chloride (98-107) mmol/L Carbon Dioxide (21-32) mmol/L Anion Gap (3-11) BUN (7-18) mg/dl Creatinine (0.6-1.4) mg/dl Est Cr Clr Drug Dosing ml/min Est GFR ( Amer) Est GFR (Non-Af Amer) BUN/Creatinine Ratio (10-20) Glucose (70-99) mg/dl Lactate 0.6 (0.4-2.0) mmol/L Calcium (8.5-10.1) mg/dl Total Bilirubin (0.2-1) mg/dl AST (15-37) U/L ALT (12-78) U/L Alkaline Phosphatase (45-117) U/L Total Creatine Kinase (39-308) U/L CK-MB (CK-2) (0.5-3.6) ng/ml CK/CKMB % Calc (0-3.0) Troponin I (0-0.045) ng/ml C-Reactive Protein (0-0.29) mg/dl Total Protein (6.4-8.2) gm/dl Albumin (3.4-5.0) gm/dl Globulin (2.5-4.0) gm/dl Albumin/Globulin Ratio (0.9-2) TSH (0.300-4.500) uIu/ml Free T4 (0.8-1.6) ng/dl Urine Color Urine Appearance Urine pH Ur Specific [place] Urine Protein Urine Glucose (UA) Urine Ketones Urine Blood Urine Nitrite Urine Bilirubin Urine Urobilinogen Ur Leukocyte Esterase Salicylates (2.8-20) mg/dl Urine Opiates Screen Ur Methadone, Qual Acetaminophen (10-30) ug/ml Urine Barbiturates Ur Phencyclidine (PCP) U Amphetamin/Meth Scrn MDMA (Ecstasy) Screen U Benzodiazepines Scrn Ur Cocaine Metabolite U Marijuana (THC) Screen Monoscreen (Negative) Influenza Type A Ag (Neg) Influenza Type B Ag (Neg) 06/28/18 Range/Units 22:38 WBC (4.8-10.8) K/uL RBC (4.7-6.1) M/uL Hgb (14.0-18.0) g/dL Hct (42-52) % MCV (80-100) fL MCH (25-34) pg MCHC (32-36) g/dL RDW Std Deviation (36.4-46.3) fL RDW Coeff of Mackenzie (11.5-14.5) % Plt Count (130-400) K/uL MPV (7.4-10.4) fL Immature Gran % (Auto) % Neut % (Auto) % Lymph % (Auto) % Pettis % (Auto) % Eos % (Auto) % Baso % (Auto) % Immature Gran # (Auto) (0.00-0.02) K/uL Neut # (Auto) (1.4-6.5) K/uL Lymph # (Auto) (1.2-3.4) K/uL Pettis # (Auto) (0.11-0.59) K/uL Eos # (Auto) (0-0.5) K/uL Baso # (Auto) (0-0.2) K/uL ESR (0-14) mm/hr PT (9.0-12.0) Seconds INR (0.9-1.1) APTT (21.0-31.0) Seconds PTT Ratio Sodium (136-145) mmol/L Potassium (3.5-5.1) mmol/L Chloride (98-107) mmol/L Carbon Dioxide (21-32) mmol/L Anion Gap (3-11) BUN (7-18) mg/dl Creatinine (0.6-1.4) mg/dl Est Cr Clr Drug Dosing ml/min Est GFR ( Amer) Est GFR (Non-Af Amer) BUN/Creatinine Ratio (10-20) Glucose (70-99) mg/dl Lactate (0.4-2.0) mmol/L Calcium (8.5-10.1) mg/dl Total Bilirubin (0.2-1) mg/dl AST (15-37) U/L ALT (12-78) U/L Alkaline Phosphatase (45-117) U/L Total Creatine Kinase (39-308) U/L CK-MB (CK-2) (0.5-3.6) ng/ml CK/CKMB % Calc (0-3.0) Troponin I (0-0.045) ng/ml C-Reactive Protein (0-0.29) mg/dl Total Protein (6.4-8.2) gm/dl Albumin (3.4-5.0) gm/dl Globulin (2.5-4.0) gm/dl Albumin/Globulin Ratio (0.9-2) TSH (0.300-4.500) uIu/ml Free T4 (0.8-1.6) ng/dl Urine Color Urine Appearance Urine pH Ur Specific [place] Urine Protein Urine Glucose (UA) Urine Ketones Urine Blood Urine Nitrite Urine Bilirubin Urine Urobilinogen Ur Leukocyte Esterase Salicylates (2.8-20) mg/dl Urine Opiates Screen Ur Methadone, Qual Acetaminophen (10-30) ug/ml Urine Barbiturates Ur Phencyclidine (PCP) U Amphetamin/Meth Scrn MDMA (Ecstasy) Screen U Benzodiazepines Scrn Ur Cocaine Metabolite U Marijuana (THC) Screen Monoscreen (Negative) Influenza Type A Ag Neg for Influ A (Neg) Influenza Type B Ag Neg for Influ B (Neg) Supervising Physician Co-Signing Physician Notes Patient seen and examined, chart reviewed, case discussed wtih Dr. Caputo and I agree with her assessment and plan as above. Briefly, patient is a 23yo male with no significant past medical or surgical history presenting with 3 days of constitutional symptoms as well as muscle pain, rash and facial swelling, sore throat, cough productive for brown sputum. Feels SOB when he lies down as well. On physical exam he was afebrile, tachycardic with regular rhythm, 98% on room air with decreased sats to 80's with sleep. Well developed, well nourished male, NAD, non-toxic in appearance, voice is hoarse Skin- blanching erythematous macular rash on anterior chest, back and neck, excoriation present on left posterior shoulder HEENT - NC/AT, PERRL, EOMI, anicteric sclera, conjunctiva without injection, TM pearly/transluscent, nares patent, MMM, OP with erythematous posterior pharynx with symmetrically enlarged tonsils, no exudates, neck supple, trachea midline, tenderness of anterior neck with palpable LAD, no stridor, no thyromegaly Heart - +S1/S2, regular, tachycardic, no m/r/g Lungs - equal air entry bilaterally, no rales/rhonchi/wheezes Abd - +BS, soft, NT/ND, no masses/organomegaly Ext - no edema Labs and images reviewed, see above. +Rhabdo. CT neck with no soft tissue swelling, no evidence of fluid collection Assessment/Plan: 23yo male with no significant PMH/PSH presenting with sore throat, rash, rhabdo, anemia, abnormal LFTs. Etiology unclear at this time. Possibly viral illness with myositis vs autoimmune source. No evidence of deeper infection of the head/neck, no airway involvement however symptoms are concerning. -Check CT chest -Sputum culture, throat culture -Basic rheum workup to start -Trend CBC, CMP, lytes -Start abx for presumed PNA as suggested by ct -Decadron -Remainder of plan as above Resident Activity Tracking Resident Involvement: Resident Care Provided Care Provided: Adult Hospital Medicine (1) Rhabdomyolysis Encounter type: initial encounter Rhabdomyolysis type: traumatic Qualified Code(s): T79.6XXA - Traumatic ischemia of muscle, initial encounter (2) Pneumonia Laterality: right Lung location: upper lobe of lung Pneumonia type: due to unspecified organism Qualified Code(s): J18.1 - Lobar pneumonia, unspecified organism
[2018-06-29 03:13] LABS: Appearance Urine Clear (Clear); Bilirubin Urine Negative (Negative); Blood Urine Negative (Negative); Color Urine Yellow; Glucose Urine UA Negative (Negative); Ketones Urine Negative (Negative); Leukocyte Esterase Urine Negative (Negative); Nitrite Urine Negative (Negative); Protein Urine Negative (Negative); Specific Gravity Urine 1.038 (1.000-1.030); Urobilinogen Urine Negative (Negative)
[2018-06-29] MEDS ORDERED: DEXAMETHASONE SOD INJ 4 MG/ML VIAL IV STA (03:21)
[2018-06-29 03:32] LABS: Amphetamines+Metham, Urine Neg (Neg); Barbiturates, Urine Neg (Neg); Benzodiazepine, Urine Neg (Neg); Cocaine, Urine Neg (Neg); MDMA (Ecstacy), Urine Neg (Neg); Methadone, Urine Neg (Neg); Opiate, Urine Neg (Neg); Phencyclidine, Urine Pos (Neg)
[2018-06-29] MEDS ORDERED: ONDANSETRON INJ 2 MG/ML 2 ML VIAL IV PRN (06:09)
[2018-06-29] MEDS ORDERED: MAGNESIUM HYDROXIDE SUSP 30 ML UDC PO PRN (06:09)
[2018-06-29] MEDS ORDERED: ACETAMINOPHEN 325 MG TAB PO PRN (06:09)
[2018-06-29] MEDS ORDERED: ALUMINUM/MAGNESIUM SUSP 30 ML UDC PO PRN (06:09)
[2018-06-29] MEDS ORDERED: POLYETHYLENE (MIRALAX) 17 GM PACK PO PRN (06:09)
--- NOTE | 2018-06-29 06:26 | CT Scan Report ---
CT head/brain wo con CLINICAL HISTORY: Severe headache, fever. COMPARISON STUDY: No previous studies for comparison. TECHNIQUE: Axial CT of the brain is performed from the vertex to the skull base. IV contrast was not administered for this examination. A dose lowering technique was utilized adhering to the principles of ALARA. CT DOSE: 614.27 mGy.cm FINDINGS: No intra or extra-axial mass lesions are visualized. There is no CT evidence of acute cortical infarc tion. There is no evidence of midline shift. There is no acute hemorrhage. No calvarial fractures ar e visualized. There is no evidence of pathologic ventricular dilatation. There is no evidence of acute sinusitis IMPRESSION: Normal noncontrast head CT. Electronically signed by: Rainer Smith M.D. 06/29/2018 6:25 AM
[2018-06-29] MEDS: HYDROmorphone INJ 0.5 MG/0.5 ML SYR IV PRN ×3 (06:28→12:32)
[2018-06-29] MEDS ORDERED: SODIUM CHLORIDE 0.9% 1000ML 1,000 ML IV SCH (06:30)
--- NOTE | 2018-06-29 08:36 | CT Scan Report ---
CT soft tissue neck w con CT DOSE: 515.17 mGy.cm CLINICAL HISTORY: Fever, sore throat. Evaluate for mass/abscess. TECHNIQUE: Helical images were acquired during intravenous administration of 94 cc of Optiray 320. A dose lowering technique was utilized adhering to the principles of ALARA. COMPARISON STUDY: None. FINDINGS: There are patchy right apical airspace opacities, suspicious for a pneumonia. No thyroid masses are visualized. No salivary gland masses are visualized. There are no pathologically enlarged cervical lymph nodes. No necrotic nodes are evident. There are no fluid collections suspicious for abscess. There is no evidence of airway compromise. No mucosal space masses are visualized. The epiglottis appears normal. Inflammatory changes are present within the maxillary sinuses. There is a small right maxilla sinus i nflammatory polyp/retention cyst. IMPRESSION: 1. Right upper lobe pulmonary airspace opacities, suspicious for pneumonia 2. No pathologic adenopathy within the neck. No evidence of abscess. Electronically signed by: Rainer Smith M.D. 06/29/2018 8:35 AM
--- NOTE | 2018-06-29 09:57 | CT Scan Report ---
CT chest wo con CLINICAL HISTORY: Fever, sore throat, abnormal neck CT with right apical parenchymal opacity COMPARISON STUDY: Chest x-ray dated 06/28/2018, CT scan dated 06/29/2018 CT DOSE: 417.73 mGy.cm TECHNIQUE: CT of the thorax was performed from the thoracic inlet to the lung bases. Images are revi ewed in the axial, sagittal, and coronal planes. IV contrast was not administered for this examinatio n. A dose lowering technique was utilized adhering to the principles of ALARA. FINDINGS: Thyroid: Imaged portions of the thyroid gland are normal in appearance. Thoracic aorta: The thoracic aorta is normal in course and caliber, noting standard 3 vessel arch bindu thao. Heart: The heart is normal in size and configuration, without pericardial effusion. Lungs and pleural spaces: There are no pleural effusions. There are nodular airspace opacities within the left lower lobe, lingula, right lower lobe, and right upper lobe. The findings most likely repre sent a multifocal pneumonia. Clinical and imaging follow-up is recommended. Mediastinum: There is no mediastinal lymphadenopathy. Marielle: There is no evidence of pathologic hilar adenopathy given the limitations of a noncontrast stud y Axilla: There is no evidence of pathologic axillary lymphadenopathy Upper abdomen: Partially visualized upper abdominal viscera is within normal limits. Skeletal structures: There are no lytic or blastic osseous lesions. IMPRESSION: Multifocal nodular airspace opacities with involvement of the right upper lobe left uppe r lobe right lower lobe and left lower lobe. The findings most likely represent a multifocal pneumoni a. Clinical and imaging follow-up is recommended. Electronically signed by: Rainer Smith M.D. 06/29/2018 9:56 AM
--- NOTE | 2018-06-29 11:38 | Family Medicine Progress Note ---
Date of Service June 29, 2018 Assessment & Plan (1) Rhabdomyolysis: (2) Pneumonia: (3) Neck pain: (4) Sick euthyroidism: (5) Anemia: (6) Transaminitis: (7) Hypoxemia: Subjective Pt was AAOx3 with no signs of anxiety. States his symptoms started June 26 with pain in neck and dysphagia to solids while at work. No associated SOB. Did not present to healthcare at that time. States he just went home and tried to sleep it off. Since then his symptoms have gotten worse with blurry vision, continued dysphagia and neck pain. Informed pt that tox screen was preliminarily positive for PCP and he vehemently and emphatically denied PCP use. Denied recreational drug use of any type. States he uses alcohol only on the weekends. States the only medications he's taken recently are dayquil, nyquil, ibuprofen, and tylenol. Pt states his PCP is Nimesh Reynolds from [place]. Upon contact with his primary care office it was noted that pt has no significant past medical Hx except for an ER visit on July 06 2017 in which he was brought in by police officers after being found vomitting from the window of a parked car. Was found to have an alcohol level of 282.4 at the time and was seen for "alcohol misuse." No drug tox was done at that time. Pt admits to blurry vision and headaches. Denies N/V, diarrhea or constipation. Review of Systems All systems reviewed & are unremarkable except as noted in HPI & below Physical Exam Vital Signs (Past 24 Hours): Last Vital Signs Temp 36.8 C 06/29/18 06:09 Pulse 93 H 06/29/18 06:09 Resp 20 06/29/18 06:09 BP 131/70 06/29/18 06:09 Pulse Ox 96 06/29/18 06:09 General: Alert, orientedx3. No acute distress. HEENT: NC/AT, oropharynx moist. Chest: Nontender to palpation. CV: RRR, Normal s1, s2. No murmurs appreciated Resp: Breath sounds clear bilaterally, no increased effort of breathing. No crackles/rhonchi/rales. Abdomen: Soft, nontender, nondistended. No guarding. No organomegaly appreciated. Extremities: No edema. Results & Data Laboratory Results Laboratory Results - last 24 hr 06/28/18 06/28/18 06/28/18 22:38 22:50 22:51 WBC 10.33 RBC 3.97 L Hgb 12.1 L Hct 35.4 L MCV 89.2 MCH 30.5 MCHC 34.2 RDW Std Deviation 44.8 RDW Coeff of Mackenzie 13.6 Plt Count 190 MPV 9.3 Immature Gran % (Auto) 0.3 Neut % (Auto) 70.5 Lymph % (Auto) 20.8 Imperial % (Auto) 6.6 Eos % (Auto) 1.6 Baso % (Auto) 0.2 Immature Gran # (Auto) 0.03 H Neut # (Auto) 7.28 H Lymph # (Auto) 2.15 Imperial # (Auto) 0.68 H Eos # (Auto) 0.17 Baso # (Auto) 0.02 ESR PT INR APTT PTT Ratio Sodium Potassium Chloride Carbon Dioxide Anion Gap BUN Creatinine Est Cr Clr Drug Dosing Est GFR ( Amer) Est GFR (Non-Af Amer) BUN/Creatinine Ratio Glucose Lactate 0.6 Calcium Total Bilirubin Direct Bilirubin AST ALT Alkaline Phosphatase Total Creatine Kinase CK-MB (CK-2) CK/CKMB % Calc Troponin I C-Reactive Protein Total Protein Albumin Globulin Albumin/Globulin Ratio TSH Free T4 Urine Color Urine Appearance Urine pH Ur Specific [place] Urine Protein Urine Glucose (UA) Urine Ketones Urine Blood Urine Nitrite Urine Bilirubin Urine Urobilinogen Ur Leukocyte Esterase Salicylates Urine Opiates Screen Ur Methadone, Qual Acetaminophen Urine Barbiturates Ur Phencyclidine (PCP) U Amphetamin/Meth Scrn MDMA (Ecstasy) Screen U Benzodiazepines Scrn Ur Cocaine Metabolite U Marijuana (THC) Screen Monoscreen Influenza Type A Ag Neg for Influ A Influenza Type B Ag Neg for Influ B 06/28/18 06/28/18 06/28/18 22:51 22:51 22:51 WBC RBC Hgb Hct MCV MCH MCHC RDW Std Deviation RDW Coeff of Mackenzie Plt Count MPV Immature Gran % (Auto) Neut % (Auto) Lymph % (Auto) Imperial % (Auto) Eos % (Auto) Baso % (Auto) Immature Gran # (Auto) Neut # (Auto) Lymph # (Auto) Imperial # (Auto) Eos # (Auto) Baso # (Auto) ESR PT 12.4 H INR 1.2 H APTT 30.2 PTT Ratio 1.1 Sodium 137 Potassium 3.5 Chloride 102 Carbon Dioxide 30 Anion Gap 5.0 BUN 11 Creatinine 1.04 Est Cr Clr Drug Dosing 130.3 Est GFR ( Amer) 118.4 Est GFR (Non-Af Amer) 102.2 BUN/Creatinine Ratio 10.7 Glucose 79 Lactate Calcium 8.3 L Total Bilirubin 1.7 H Direct Bilirubin AST 103 H ALT 55 Alkaline Phosphatase 63 Total Creatine Kinase 2830 H CK-MB (CK-2) 12.6 H CK/CKMB % Calc 0.4 Troponin I < 0.015 C-Reactive Protein 11.60 H Total Protein 6.7 Albumin 3.6 Globulin 3.1 Albumin/Globulin Ratio 1.2 TSH 0.266 L Free T4 1.03 Urine Color Urine Appearance Urine pH Ur Specific Mesa Urine Protein Urine Glucose (UA) Urine Ketones Urine Blood Urine Nitrite Urine Bilirubin Urine Urobilinogen Ur Leukocyte Esterase Salicylates < 1.7 L Urine Opiates Screen Ur Methadone, Qual Acetaminophen < 2 L Urine Barbiturates Ur Phencyclidine (PCP) U Amphetamin/Meth Scrn MDMA (Ecstasy) Screen U Benzodiazepines Scrn Ur Cocaine Metabolite U Marijuana (THC) Screen Monoscreen Influenza Type A Ag Influenza Type B Ag 06/28/18 06/28/18 06/29/18 22:51 22:51 03:00 WBC RBC Hgb Hct MCV MCH MCHC RDW Std Deviation RDW Coeff of Mackenzie Plt Count MPV Immature Gran % (Auto) Neut % (Auto) Lymph % (Auto) Imperial % (Auto) Eos % (Auto) Baso % (Auto) Immature Gran # (Auto) Neut # (Auto) Lymph # (Auto) Imperial # (Auto) Eos # (Auto) Baso # (Auto) ESR 15 H PT INR APTT PTT Ratio Sodium Potassium Chloride Carbon Dioxide Anion Gap BUN Creatinine Est Cr Clr Drug Dosing Est GFR ( Amer) Est GFR (Non-Af Amer) BUN/Creatinine Ratio Glucose Lactate Calcium Total Bilirubin Direct Bilirubin AST ALT Alkaline Phosphatase Total Creatine Kinase CK-MB (CK-2) CK/CKMB % Calc Troponin I C-Reactive Protein Total Protein Albumin Globulin Albumin/Globulin Ratio TSH Free T4 Urine Color Urine Appearance Urine pH Ur Specific [place] Urine Protein Urine Glucose (UA) Urine Ketones Urine Blood Urine Nitrite Urine Bilirubin Urine Urobilinogen Ur Leukocyte Esterase Salicylates Urine Opiates Screen Neg Ur Methadone, Qual Neg Acetaminophen Urine Barbiturates Neg Ur Phencyclidine (PCP) Pos H U Amphetamin/Meth Scrn Neg MDMA (Ecstasy) Screen Neg U Benzodiazepines Scrn Neg Ur Cocaine Metabolite Neg U Marijuana (THC) Screen Neg Monoscreen Negative Influenza Type A Ag Influenza Type B Ag 06/29/18 06/29/18 03:00 07:13 WBC RBC Hgb Hct MCV MCH MCHC RDW Std Deviation RDW Coeff of Mackenzie Plt Count MPV Immature Gran % (Auto) Neut % (Auto) Lymph % (Auto) Imperial % (Auto) Eos % (Auto) Baso % (Auto) Immature Gran # (Auto) Neut # (Auto) Lymph # (Auto) [place] # (Auto) Eos # (Auto) Baso # (Auto) ESR PT INR APTT PTT Ratio Sodium Potassium Chloride Carbon Dioxide Anion Gap BUN Creatinine Est Cr Clr Drug Dosing Est GFR ( Amer) Est GFR (Non-Af Amer) BUN/Creatinine Ratio Glucose Lactate Calcium Total Bilirubin Direct Bilirubin 0.4 H AST ALT Alkaline Phosphatase Total Creatine Kinase CK-MB (CK-2) CK/CKMB % Calc Troponin I C-Reactive Protein Total Protein Albumin Globulin Albumin/Globulin Ratio TSH Free T4 Urine Color Yellow Urine Appearance Clear Urine pH 6.0 Ur Specific Mes[place] 1.038 H Urine Protein Negative Urine Glucose (UA) Negative Urine Ketones Negative Urine Blood Negative Urine Nitrite Negative Urine Bilirubin Negative Urine Urobilinogen Negative Ur Leukocyte Esterase Negative Salicylates Urine Opiates Screen Ur Methadone, Qual Acetaminophen Urine Barbiturates Ur Phencyclidine (PCP) U Amphetamin/Meth Scrn MDMA (Ecstasy) Screen U Benzodiazepines Scrn Ur Cocaine Metabolite U Marijuana (THC) Screen Monoscreen Influenza Type A Ag Influenza Type B Ag Medications Administered Home Medications No Known Home Medications 06/28/18 [History Confirmed 06/28/18] Active Medications Acetaminophen (Tylenol) 650 mg PO Q4H PRN PRN Reason: Pain or Fever Stop: 07/29/18 06:08 Al Hydrox/Mg Hydrox/Simethicone (Maalox) 15 ml PO Q4H PRN PRN Reason: Dyspepsia Stop: 07/29/18 06:08 Hydromorphone HCl (Dilaudid) 0.25 mg IV Q2H PRN PRN Reason: Pain Stop: 07/01/18 06:08 Last Admin: 06/29/18 08:54 Dose: 0.25 mg Documented by: Sodium Chloride (Nss 1000ml) 1,000 mls @ 100 mls/hr IV .Q10H DELLA Stop: 07/02/18 06:29 Last Admin: 06/29/18 08:54 Dose: 100 mls/hr Documented by: Ceftriaxone Sodium 1,000 mg/ (Dextrose) 50 mls @ 100 mls/hr IV Q24H DELLA; Protocol Stop: 07/07/18 07:59 Dexamethasone 4 mg/ Syringe 1 mls @ 1 mls/min IV Q12H DELLA Stop: 07/29/18 15:59 Azithromycin 500 mg/ Dextrose 255 mls @ 125 mls/hr IV Q24H DELLA Stop: 07/07/18 05:59 Magnesium Hydroxide (Milk Of Magnesia) 30 ml PO Q12H PRN PRN Reason: Constipation Stop: 07/29/18 06:08 Ondansetron HCl (Zofran) 4 mg IV Q6H PRN PRN Reason: Nausea Stop: 07/29/18 06:08 Polyethylene Glycol (Miralax Powder Packet) 17 gm PO DAILY PRN PRN Reason: Constipation Stop: 07/29/18 06:08 Resident Activity Tracking Resident Involvement: Resident Care Provided Care Provided: Adult Hospital Medicine (1) Rhabdomyolysis Encounter type: initial encounter Rhabdomyolysis type: traumatic Qualified Code(s): T79.6XXA - Traumatic ischemia of muscle, initial encounter (2) Pneumonia Laterality: right Lung location: upper lobe of lung Pneumonia type: due to unspecified organism Qualified Code(s): J18.1 - Lobar pneumonia, unspecified organism
[2018-06-29 12:53] LABS: Hemoglobin 11.9 g/dL (14.0-18.0); Immature Granulocytes # (auto) 0.01 K/uL (0.00-0.02); Immature Granulocytes % (auto) 0.2 %; Lymphocytes # (auto) 0.45 K/uL (1.2-3.4); Mean Corpuscular Volume 89.1 fL (80-100); Mean Platelet Volume 9.7 fL (7.4-10.4); Monocytes # (auto) 0.14 K/uL (0.11-0.59); Monocytes % (auto) 2.2 %; Neutrophils # (auto) 5.81 K/uL (1.4-6.5); Neutrophils % (auto) 90.6 %; Platelet Count 197 K/uL (130-400); RDW Coefficient of Variation 13.8 % (11.5-14.5); RDW Standard Deviation 45.5 fL (36.4-46.3); Red Blood Count 3.93 M/uL (4.7-6.1); White Blood Count 6.41 K/uL (4.8-10.8)
[2018-06-29 13:06] LABS: INR 1.2 (0.9-1.1); Prothrombin Time 12.1 Seconds (9.0-12.0)
[2018-06-29 13:11] LABS: Albumin Level 3.3 gm/dl (3.4-5.0); Calcium 8.2 mg/dl (8.5-10.1); Creatinine Clr Calc Pharmacy 141.6 ml/min; Est GFR (African American) 130.4; Est GFR (Non-African American) 112.5; Potassium 3.9 mmol/L (3.5-5.1)
[2018-06-29 13:34] LABS: Bilirubin,Total 0.8 mg/dl (0.2-1); C Reactive Protein 12.1 mg/dl (0-0.29); Globulin 3.3 gm/dl (2.5-4.0); Total Protein 6.6 gm/dl (6.4-8.2)
[2018-06-29] MEDS ORDERED: AMOXICILLIN/CLAVULANATE 875 MG TAB PO ONE (15:25)
[2018-06-29] MEDS ORDERED: dexAMETHasone 4 MG in SYRINGE 0 ML IV SCH (16:00)
--- NOTE | 2018-06-29 16:27 | Discharge Summary ---
Date of Service June 29, 2018 Admission HPI Per Admitting Provider 23-year-old male with no significant past medical history who presents with 3- day history of constitutional symptoms like night sweats, chills associated with proximal muscle pain and pruritus in his shoulders and neck. Also endorses a smooth blotchy rash across his chest and face, subtle facial swelling, productive cough with brown phlegm. Denies recent physical trauma to his shoulders or neck, has not exercised for 2 weeks. Travel to [place] at the beginning of last month for 3 days. Also endorses sore throat. Scratched so hard on his shoulders he david blood. In the ED he was found to be mildly tachycardic, afebrile. 98 on room air. Hemoglobin 12.1, hematocrit 35.4. CBC otherwise unremarkable. ESR mildly elevated at 15. INR mildly elevated 1.2. BMP unremarkable. T bili elevated 1.7, AST>>ALT elevated 103/55. Total CK markedly elevated 2830. Troponin negative. TSH 0.26 but free T4 normal 1.03. Negative mono screen, negative flu. Imaging of head and neck revealed no abnormalities with the exception of possible right upper lobe infiltrate of the lung, not fully visualized due to the study. Chest x-ray negative. PMH: None PSH: None Social history: Works as a outdoor emergency care technician, denies tobacco or illicit drug use. Drinks 12 beers in 1 week on average. Family history: Father is alive and well. Mother has thyroid disease. Admission Exam Per Admitting Provider Vitals noted as above and within normal limits with the exception of tachycardia. GENERAL: Awake, alert to person, place, and time, nontoxic-appearing, in no distress HENT: Normocephalic, atraumatic. Nasal cannula in place. Mucus membranes appear moist. + Pharyngeal erythema. No cervical or supraclavicular lymphadenopathy. + Maculopapular rash across chest and cheeks. + excoriations on right shoulder. EYES: Normal conjunctiva. Sclera non-icteric. EOMI.+ Heliotrope rash with some eyelid swelling. NECK: Supple. Full range of motion. No JVD RESPIRATORY: Clear to auscultation. Normal work of breathing. CARDIAC: Regular rate, normal rhythm. Extremities warm and well perfused, ; . ABDOMEN: Soft, non-distended. No tenderness to palpation in all four quadrants. No rebound or guarding. No masses. Bowel sounds are normal. LOWER EXTREMITIES: Inspection of calves reveal equal size bilaterally. They are non-tender. No edema. No discoloration. NEURO: No focal gross focal motor deficits noted. Sensation in tact. CN II-XII grossly in tact. SKIN: Rash not present. No jaundice noted. Significant lesions not present. PSYCH: Appropriate mood and affect. Cooperative. Principal Diagnosis CAP, Rhabdomyolysis Discharge Exam General: Alert, orientedx3. No acute distress. HEENT: NC/AT, oropharynx moist. Chest: Nontender to palpation. CV: RRR, Normal s1, s2. No murmurs appreciated Resp: Breath sounds clear bilaterally, no increased effort of breathing. No crackles/rhonchi/rales. Abdomen: Soft, nontender, nondistended. No guarding. No organomegaly appreciated. Extremities: No edema. Skin: Excoriated red, bruise-like lesion on right shoulder. No evidence of Jaundice. Discharge Data Allergies Allergy/AdvReac Type Severity Reaction Status Date / Time No Known Allergies Allergy Unverified 06/28/18 23:06 Consultations 06/29/18 01:46 ED Decision to Admit Stat Ordered Studies 06/28/18 22:22 CT head/brain wo con Urgent 06/29/18 00:33 CT soft tissue neck w con Urgent 06/29/18 06:09 CT chest wo con Routine Hospital Course (1) Rhabdomyolysis: 23yo male with no significant here with dizziness, neck discomfort and cough Community Acquired Pneumonia -CT scan showed multiple possible opacities. -One dose of Augmentin before discharge. Discharged with prescription for Augmentin. -Procalcitonin-NORMAL. Neck Pain -Treated with dexamethasone in ED with some improvement. Pain with swallowing - h/o GERD -Discharged with Zantac prescription.. Elevated CPK - in 1999 - ? sec to acute illness versus an independent pathology -Repeat labs with improvement -Treated with IV fluids and supportive treatment. -kidney function was monitored. Sick Euthyroidism -TSH decreased, free T4 normal. -recheck thyroid levels 2 weeks after discharge Anemia -Normocytic. -Stable upon discharge. Hypoxia -resolved on discharge Mildly elevated LFT/CRP/ESR - LFT slightly better with repeat labs. - further outpatient follow up. Urine tox with PCP - ? false positive from nyquil. Outpatient follow up. (2) Pneumonia: (3) Neck pain: (4) Sick euthyroidism: (5) Anemia: (6) Transaminitis: (7) Hypoxemia: Total Time Total Time Spent Total Time Spent (In Minutes): 60 Discharge Plan Discharge Items Patient Disposition: Home - Self-Care Reason For Visit: NECK SWELLING, PNEUMONIA, RHABDOMYOLYSIS Discharge Diagnosis: Community Acquired Pneumonia, Rhabdomylolysis, GERD Discharge Goals: Decrease discomfort and Improve disease control Activity: Resume your previous activity Non-emergency contact: Primary Care Provider Call non-emergency contact if: your symptoms worsen and you have a fever Follow-up/Referrals: Ar Reynolds M.D. [Primary Care Provider] - Diet: Regular Addtl Provider Instructions: You came to the ER with complain of neck pain, cough and feeling dizzi In the ER your CT scan showed findings of pneumonia and other abnormality of blood test - low hemogloin, mild elevation of liver enzymes, some elevation of muscle enzyme, elevated inflammatory marker, and TSH of 0.2. Most of these blood test have either mildly improved or stayed the same on recheck. You were given IV fluids and IV steroids and observed. Next day you were better. You are being discharged on antibiotic for pneumonia, and zantac for concern of acid reflux You EKG on admission showed electrical finding of prolonged qtc which was resolved at the time of discharge. You should follow up with your family physician within one week. Prescriptions: New ranitidine HCl [Zantac] 150 mg tablet 150 mg PO BID Qty: 14 RF: 0 amoxicillin-pot clavulanate [Augmentin] 875-125 mg tablet 1 tab PO BID Qty: 14 RF: 0 No Action No Known Home Medications RF: 0 Stand-Alone Forms: [facility] Discharge Orders: Discharge Order (Routine); Ordered 06/29/18 Ordered By: Janina Arguelles Admission Data Admit Date/Time: 06/29/18 03:33 Attending Provider: Janina Arguelles Admit Provider: Keyla Caputo Primary Care Provider: Ar Reynolds Other Providers: Nubia Holguin Service: Telemetry Medical Other Interventions: Discharge Summary Assessment (RN) Last Done: 06/29/18 16:04 DC Date/Time DO NOT enter until pt leaves facility: 06/29/18 17:29 Supervising Physician Co-Signing Physician Notes Resident Physician Supervision Note: I independently interviewed and examined the patient and verified the nix history and physical, reviewed labs and image studies, discussed the case with the resident Dr. Calabrese and agree with the findings and care plan. Time spent in discharge 35 min
[2018-06-30] MEDS ORDERED: AZITHROMYCIN 500 MG in DEXTROSE 5% 250 ML IV SCH (06:00)
[2018-06-30] MEDS ORDERED: cefTRIAXone SODIUM 1,000 MG in DEXTROSE 5% 50 ML IV SCH (08:00)
== END 2018-06-29 17:29 | disposition home or self-care (01) | DRG 557 ==
LOC: ED 21:15 → 2W 06-29 03:33 → SUATTDRO 06-29 03:33 → 2W 06-29 05:10
DX: J18.9 Pneumonia, unspecified organism; K21.9 Gastro-esophageal reflux disease without esophagitis; E07.81 Sick-euthyroid syndrome; D64.9 Anemia, unspecified; R13.10 Dysphagia, unspecified; R09.02 Hypoxemia; R74.0 Nonspecific elevation of levels of transaminase and lactic acid dehydrogenase [LDH]; M62.82 Rhabdomyolysis